=== PATIENT | male | born 1980 | race Caucasian/White ===

== ENCOUNTER 2019-06-08 23:53 | Emergency (ER) | payer SELFPAY ==
[~2019-06-08] VITALS: Ht 193 cm; Wt 129.5 kg
[2019-06-09] MEDS ORDERED: ibuprofen tablet 400 MG TABLET PO ONE (01:15)
[2019-06-09 02:04] VITALS: BP 135/91
== END 2019-06-09 02:30 | disposition home or self-care (01) ==
LOC: ER 23:54
DX: M89.8X1 Other specified disorders of bone, shoulder (principal); M25.511 Pain in right shoulder; X58.XXXA Exposure to other specified factors, initial encounter; Y93.89 Activity, other specified; Y92.89 Other specified places as the place of occurrence of the external cause; Y99.8 Other external cause status
CPT/HCPCS: 73030; 99283